=== PATIENT | female | born 1965 | race Caucasian/White ===

== ENCOUNTER 2016-06-05 14:11 | Observation (INO) | payer MEDICARE, MEDICAID ==
[~2016-06-05] VITALS: Ht 157.5 cm; Wt 117.9 kg
[2016-06-05 16:47] VITALS: Ht 157.5 cm; Wt 117.9 kg
[2016-06-05 16:48] VITALS: BP_SYST 136; RESP 16; TEMP 98.1
[2016-06-05] MEDS ORDERED: DOCUSATE SOD 100 MG CAP PO PRN (16:55)
[2016-06-05] MEDS ORDERED: NITROGLYCERIN SL 0.4 MG TAB SL PRN (16:55)
[2016-06-05] MEDS ORDERED: ONDANSETRON 4 MG VIAL IV PRN (16:55)
[2016-06-05] MEDS ORDERED: ASPIRIN 81 MG CHEW TAB PO ONE (16:55)
[2016-06-05] MEDS ORDERED: TEMAZEPAM 15 MG CAP PO PRN (16:55)
[2016-06-05] MEDS ORDERED: SODIUM CHLORIDE 0.9% FLUSH BAG 500 ML IV PRN (16:55)
[2016-06-05] MEDS ORDERED: SALINE FLUSH 10 ML FLUSH PRN (16:55)
[2016-06-05] MEDS ORDERED: NITROGLYCERIN 50 MG/250 ML IV PRN (16:55)
[2016-06-05] MEDS ORDERED: MORPHINE 2 MG/ML SYR IV PRN (16:55)
[2016-06-05] MEDS ORDERED: LORAZEPAM 0.5 MG TAB PO PRN (16:55)
[2016-06-05] MEDS ORDERED: ACETAMINOPHEN 325 MG TAB PO PRN (16:55)
[2016-06-05 19:00] VITALS: BP_SYST 124; RESP 18; TEMP 97.7
[2016-06-05] MEDS: NITROGLYCERIN 2% OINT 1 INCH PKT TOPICAL SCH ×2 (19:20→23:42)
[2016-06-05] MEDS: TRAMADOL 50 MG TAB PO PRN (19:28)
[2016-06-05] MEDS: SALINE FLUSH 10 ML FLUSH SCH (19:28)
[2016-06-05 21:34] VITALS: BP_SYST 135; RESP 16; TEMP 98.4
[2016-06-05 23:28] VITALS: BP_SYST 134; RESP 20; TEMP 98.3
[2016-06-06] MEDS ORDERED: ALPRAZOLAM 0.25 MG TAB PO PRN (00:35)
[2016-06-06] MEDS: TRAMADOL 50 MG TAB PO PRN ×2 (00:49→09:14)
[2016-06-06 03:25] VITALS: BP_SYST 110; RESP 18; TEMP 97.5
[2016-06-06] MEDS: NITROGLYCERIN 2% OINT 1 INCH PKT TOPICAL SCH (05:23)
[2016-06-06 07:23] VITALS: BP_SYST 143; RESP 18; TEMP 97.5
[2016-06-06] MEDS ORDERED: ASPIRIN EC 81 MG TAB PO SCH (08:00)
[2016-06-06] MEDS ORDERED: glipiZIDE 5 MG TAB PO SCH (09:00)
[2016-06-06] MEDS ORDERED: LOTREL PO SCH (09:00)
[2016-06-06] MEDS ORDERED: PREGABALIN 100 MG CAPSULE PO SCH (09:00)
[2016-06-06] MEDS ORDERED: PAROXETINE HCL 10 MG TAB PO SCH (09:00)
[2016-06-06] MEDS: SALINE FLUSH 10 ML FLUSH SCH (09:10)
[2016-06-06 11:10] VITALS: BP_SYST 130; RESP 18; TEMP 98.6
[2016-06-06 11:25] VITALS: BP_SYST 130; RESP 18; TEMP 98.6
== END 2016-06-06 10:35 | disposition home or self-care (01) ==
LOC: ENRESERVDT → ENRESERVTM → ER 14:11 → ENPENDDIS 15:21 → EMR 15:21 → PCU2 16:33 → 4THW 21:25 → UNDODISOB 06-06 11:56
PROVIDERS: ADMIT Internal Medicine Cardiovascular Disease; ATTEND Internal Medicine Cardiovascular Disease
CPT/HCPCS: 71010 ×2; 93005 ×2; 96374 ×2; 96375 ×2; 99285; G0378